=== PATIENT | male | born 1985 | race American Indian/Alaskan Native ===

== ENCOUNTER 2017-08-15 21:03 | Emergency (ER) | payer OTHER ==
[2017-08-15 21:47] VITALS: BP 153/105
== END 2017-08-15 23:50 | disposition left against medical advice (07) ==
LOC: ED 21:03
DX: M54.2 Cervicalgia (principal); V89.2XXA Person injured in unspecified motor-vehicle accident, traffic, initial encounter; Z53.21 Procedure and treatment not carried out due to patient leaving prior to being seen by health care provider; Y93.89 Activity, other specified; Y92.89 Other specified places as the place of occurrence of the external cause; Y99.8 Other external cause status